=== PATIENT | male | born 1950 | race Caucasian/White ===

== ENCOUNTER 2018-07-26 16:08 | Observation (INO) | payer OTHER ==
[~2018-07-26] VITALS: Ht 167.6 cm; Wt 85.0 kg
[2018-07-26 16:10] VITALS: Ht 167.6 cm; Wt 85.0 kg
[2018-07-26] MEDS ORDERED: ONDANSETRON 4 MG INJ IV PRN ×2 (16:30→18:00)
[2018-07-26] MEDS ORDERED: ACETAMINOPHEN 325 MG TAB PO PRN ×2 (16:30→18:00)
--- NOTE | 2018-07-26 16:45 | ERD ---
ER Documentation Chief Complaint Chief Complaint Patient sent from clinic for evaluation Bradycardia HPI 68-year-old gentleman who presents to the emergency room from all of you. The patient is a transfer but will be boarding in the emergency room because we do not have beds. The patient was admitted at [facility] for chest pain for 3 days. He had a stress test and bradycardia and was admitted to our facility because of capitation. He currently denies any chest pain. No other complaints. ROS All systems reviewed and are negative except as per history of present illness. FmHx Family History: No diabetes Physical Exam Vitals Vital Signs Date Temp Pulse Resp B/P (MAP) Pulse Ox O2 O2 Flow FiO2 Time Delivery Rate 07/26/18 98.8 60 20 147/76 95 16:10 (99) Physical Exam General: Well developed, well nourished, no acute distress Head: Normocephalic, atraumatic. Eyes: EOM intact ENT: Moist mucous membranes Neck: Full ROM Respiratory: No respiratory distress Cardiovascular: Well perfused distally Abdominal: Nondistended : Deferred MSK: No edema, no unilateral swelling, 5/5 strength Neurologic: Alert and oriented, moving all extremities, normal speech, steady gait Skin: No rash Psych: Normal mood Results 24 hrs Current Medications Medications Dose Sig/Jimi Start Time Status Last (Trade) Ordered Route PRN Stop Time Admin Dose Reason Admin Ondansetron 4 mg ER BRIDGE 07/26/18 HCl (Zofran PRN IV 16:30 Inj) NAUSEA/VOMITI 07/27/18 16:29 NG 650 mg ER BRIDGE 07/26/18 Acetaminophen PRN PO 16:30 (Tylenol .MILD PAIN 07/27/18 16:29 Tab) 1-3 OR TEMP Procedures/MDM The patient will be boarding in the emergency room. Dr. Amaya was notified of the patient's arrival and will evaluate the patient. The patient is hemodynamically stable and asymptomatic in the emergency room setting. Accepting care team and consultations: I discussed the current laboratory data, diagnostic imaging and emergency care provided. Admitting team: Dr Amaya Admitting team indication: Insurance directed Departure Diagnosis: Primary Impression: Bradycardia Additional Impression: Chest pain Chest pain type: unspecified Qualified Codes: R07.9 - Chest pain, unspecified Condition: Stable CINDY ANAND MD Jul 26, 2018 16:45
[2018-07-26] MEDS ORDERED: ATOR40TA68 PO (17:04)
[2018-07-26] MEDS ORDERED: OMEP20CA16 PO (17:04)
--- NOTE | 2018-07-26 17:38 | QN ---
Documentation Comment seen and examined DOMINIC PRAKASH MD Jul 26, 2018 17:38
[2018-07-26] MEDS ORDERED: HYDROCODONE/APAP (5/325) TAB PO PRN (18:00)
[2018-07-26] MEDS: SOD CHLORIDE 0.9% 1,000 ML IV SCH (18:08)
--- NOTE | 2018-07-26 18:16 | HP ---
DATE OF ADMISSION: 07/26/2018 REASON FOR ADMISSION: Transferred to [facility] from [facility] secondary to anson cardia. HISTORY OF PRESENTING ILLNESS: A 68-year-old male with a history of prediabetes, hyperlipidemia, ZEN D, presented to [facility] on 07/26/2018 secondary to chest pain, discomfort. The patient s aid that he went to [place] along with his daughter 3 days ago and started noticing chest pain, di scomfort in the evening after eating pizza and coffee, felt like central burning sensation, nonradiat ing, worse with lying down and better with exertion. The patient said that he feels like similar to reflux pain he had in the past. The patient has tried Pepcid and omeprazole without any help. The p atient was also feeling intermittently dizzy for the last few days. Denied any hematemesis, any lucero na, any bright red blood per rectum. On arrival to [facility], vital signs showed heart rate of 48, blood pressure 138/87. EKG: No acute ST-T-wave changes from prior. The patient had chest x-ray ted t was negative. The patient was seen by cardiology, had a normal stress test; however given artifact on EKG at peak stress, I recommend for further evaluation ____. The patient was having mild chest p ain. The patient was seen and they said that given the fact that the patient had good exercise americo ance without exertional chest pain on exercise treadmill places low risk of cardiac events in next 5 years, adding imaging modality to improve sensitivity and specificity for detecting coronary artery d isease and the patient was transferred due to insurance reasons. Currently, the patient said the pat ient has pain of 1/10. PAST MEDICAL HISTORY: 1. Prediabetes. 2. Hypertension. 3. GERD. ALLERGIES: NONE. MEDICATIONS TAKING AT HOME: 1. Atorvastatin 40. 2. Prilosec 20. SOCIAL HISTORY: Occasionally drinks alcohol. Denies history of smoking or any recreational drug use . Lives in [place]. FAMILY HISTORY: Significant for coronary artery disease in the mother at 80s and sister in 50s. REVIEW OF SYSTEMS: The patient has some central burning pain. Denies any headache. Dizziness is ge tting better. Denies any episodes of passing out, any history of seizures, any abdominal pain, nause a, vomiting, diarrhea, headache, blurry vision, any focal neurological deficit. PHYSICAL EXAMINATION: VITAL SIGNS: Currently, pulse 54, temperature 98.3, respiratory rate 20, blood pressure 130/71. GENERAL: The patient is awake, alert, oriented, does not appear to be in acute distress. HEENT: Pupils are equal, round, reactive to light. NECK: Supple. No JVD. HEART: Regular rate and rhythm. LUNGS: Clear to auscultation bilaterally. ABDOMEN: Soft, nontender, nondistended. EXTREMITIES: No clubbing, cyanosis or edema. ASSESSMENT AND PLAN: This is a 68-year-old male with: 1. Chest pain for the last 3 days. The patient ____ had likely noncardiac in origin, could be secon nithya to poorly controlled gastroesophageal reflux disease versus reflux versus gastric ulcer disease. Troponins were negative. EKG was negative for any acute ST or T-wave changes. The patient also landry d a treadmill test which we recommend. The patient had good exercise tolerance without exertional ch est pain and if patient continued to have chest pain as an outpatient, I recommend an imaging modalit y to improve sensitivity and specificity. 2. Sinus bradycardia. TSH within normal limit. Echo is pending. 3. History of hypertension. 4. Hyperlipidemia. PLAN: At this period of time, the patient is admitted to tele. We will continue to monitor the bennett ent. We will get EKG, troponin. Protonix. Cardiology consult with Dr. Garcia. Rest of the treatm ent will depend on the patient's hospitalization course. Dictated By: DOMINIC PRAKASH RB/MEETA Conf#: [id number] DID#: [id number] CC: CINDY ANAND MD; TIP GARCIA MD;*EndCC*
[2018-07-26] MEDS: ATORVASTATIN 40 MG TAB PO SCH (20:54)
[2018-07-26 21:38] VITALS: PULSE 53
[2018-07-27] VITALS (12 sets, daily range): BP systolic 107–131; BP diastolic 64–79; PULSE 42–68; RESP 18
[2018-07-27] MEDS: PANTOPRAZOLE (EC) 40 MG TAB PO SCH (06:34)
[2018-07-27] MEDS: ENOXAPARIN 30 MG/0.3 ML SYG SC SCH (10:08)
--- NOTE | 2018-07-27 13:14 | PN ---
Date/Time of Note Date/Time of Note DATE: 07/27/18 TIME: 13:13 Assessment/Plan VTE Prophylaxis Risk score (from [facility])>0 risk: 4 SCD applied (from [facility]): No SCD contraindicated: other Pharmacological prophylaxis: LMWH Lines/Catheters IV Catheter Type (from [facility]): Saline Lock Assessment/Plan Hospital Course 1. Chest pain for the last 3 days. More likely heartburn. GERD . 2. Sinus bradycardia. TSH within normal limit. Echo is pending. 3. History of hypertension. 4. Hyperlipidemia. 5. Obesity 6. hx of prediabetes Assessment/Plan - tele. SB, 53 /min. Neg. troponn -EKG, troponin. Protonix. -Cardiology consult with Dr. Garcia. -DVT proph. loVENOX -GI prophylaxis Protonix -dr Garcia wants to observe overnight, f/up with echo -d/c tomorrow Result Diagram: 07/27/18 0506 07/27/18 0506 Results 24hrs Laboratory Tests Test 07/26/18 18:13 07/26/18 23:47 07/27/18 05:06 Creatine Kinase 99 92 Creatine Kinase Index 0.5 0.6 Creatinine Kinase MB (Mass) 0.49 0.54 Troponin I < 0.012 < 0.012 White Blood Count 8.1 Red Blood Count 4.97 Hemoglobin 14.8 Hematocrit 44.8 Mean Corpuscular Volume 90.1 Mean Corpuscular Hemoglobin 29.8 Mean Corpuscular Hemoglobin Concent 33.0 Red Cell Distribution Width 13.2 Platelet Count 235 Mean Platelet Volume 11.0 H Immature Granulocytes % 0.100 Neutrophils % 37.2 L Lymphocytes % 45.9 Monocytes % 13.0 H Eosinophils % 3.4 Basophils % 0.4 Nucleated Red Blood Cells % 0.0 Immature Granulocytes # 0.010 Neutrophils # 3.0 Lymphocytes # 3.7 H Monocytes # 1.1 H Eosinophils # 0.3 Basophils # 0.0 Nucleated Red Blood Cells # 0.0 Sodium Level 142 Potassium Level 4.5 Chloride Level 105 Carbon Dioxide Level 28 Anion Gap 9 Blood Urea Nitrogen 21 H Creatinine 0.90 Est Glomerular Filtrat Rate mL/min > 60 Glucose Level 108 Calcium Level 9.9 Free Thyroxine Index 2.52 Thyroxine (T4) 8.3 Triiodothyronine (T3) Uptake 30.4 Subjective 24 Hr Interval Summary Gastrointestinal: pain (midchest) Exam/Review of Systems Exam Vitals Vital Signs Date Temp Pulse Resp B/P (MAP) Pulse Ox O2 O2 Flow FiO2 Time Delivery Rate 07/27/18 68 12:05 07/27/18 98.1 18 107/64 98 Room Air 11:39 (78) Intake and Output 07/26/18 07/26/18 07/27/18 1515:00 23:00 07:00 IntakeIntake Total 400 ml BalanceBalance 400 ml Constitutional: alert, oriented Neck: supple Respiratory: clear to auscultation Cardiovascular: regular rate and rhythm Gastrointestinal: soft Genitourinary - Male: CVA tenderness; No nl penis, No nl scrotum, No discharge, No other Results Results 24hrs Laboratory Tests Test 07/26/18 18:13 07/26/18 23:47 07/27/18 05:06 Creatine Kinase 99 92 Creatine Kinase Index 0.5 0.6 Creatinine Kinase MB (Mass) 0.49 0.54 Troponin I < 0.012 < 0.012 White Blood Count 8.1 Red Blood Count 4.97 Hemoglobin 14.8 Hematocrit 44.8 Mean Corpuscular Volume 90.1 Mean Corpuscular Hemoglobin 29.8 Mean Corpuscular Hemoglobin Concent 33.0 Red Cell Distribution Width 13.2 Platelet Count 235 Mean Platelet Volume 11.0 H Immature Granulocytes % 0.100 Neutrophils % 37.2 L Lymphocytes % 45.9 Monocytes % 13.0 H Eosinophils % 3.4 Basophils % 0.4 Nucleated Red Blood Cells % 0.0 Immature Granulocytes # 0.010 Neutrophils # 3.0 Lymphocytes # 3.7 H Monocytes # 1.1 H Eosinophils # 0.3 Basophils # 0.0 Nucleated Red Blood Cells # 0.0 Sodium Level 142 Potassium Level 4.5 Chloride Level 105 Carbon Dioxide Level 28 Anion Gap 9 Blood Urea Nitrogen 21 H Creatinine 0.90 Est Glomerular Filtrat Rate mL/min > 60 Glucose Level 108 Calcium Level 9.9 Free Thyroxine Index 2.52 Thyroxine (T4) 8.3 Triiodothyronine (T3) Uptake 30.4 Medications Medication Current Medications Sodium Chloride 1,000 ml @ 40 mls/hr Q24H IV Last administered on 07/26/18at 18:08; Admin Dose 40 MLS/HR; Start 07/26/18 at 17:31 Ondansetron HCl (Zofran Inj) 4 mg Q6H PRN IV NAUSEA/VOMITING; Start 07/26/18 at 18:00 Acetaminophen (Tylenol Tab) 650 mg Q6H PRN PO .PAIN 1-3 OR TEMP; Start 07/26/18 at 18:00 Acetaminophen/ Hydrocodone Bitart ([place] (5/325)) 1 tab Q6H PRN PO .MOD PAIN 4- 6; Start 07/26/18 at 18:00 Pantoprazole (Protonix Tab) 40 mg DAILY@06 PO Last administered on 07/27/18at 06:34; Admin Dose 40 MG; Start 07/27/18 at 06:00 Enoxaparin Sodium (Lovenox) 30 mg DAILY SC Last administered on 07/27/18at 10:08; Admin Dose 30 MG; Start 07/27/18 at 09:00 Atorvastatin Calcium (Lipitor) 40 mg QHS PO Last administered on 07/26/18at 20:54; Admin Dose 40 MG; Start 07/26/18 at 21:00 JONATHAN CROOK Jul 27, 2018 13:14
--- NOTE | 2018-07-27 15:21 | CONS ---
DATE OF ADMISSION: 07/26/2018 DATE OF CONSULTATION: 07/27/2018 TYPE OF CONSULTATION: Cardiology. REASON FOR CONSULTATION: Bradycardia, chest pain. REQUESTING PHYSICIAN: Sakshi Prakash MD, from nephrology service. HISTORY OF PRESENT ILLNESS: Mr. Fer Millan is a 68-year-old male with history of hypertension, d yslipidemia, gastroesophageal reflux disease, prediabetic, who initially presented to [facility] with complaints of substernal chest pain describes as burning sensation, worse with lying flat , but no significant improvement with PPIs or H2 blockers. The patient subsequently was admitted to outside hospital and ruled out for myocardial infarction, underwent a treadmill stress test and inter preted as a normal stress test with an artifact in EKG at peak stress and Cooper Treadmill Score of ___ __. The patient was additionally noted to be bradycardic but had no indication for permanent pacemak er at that time. The patient has now been transferred to [facility] for ongoing tr eatment and evaluation. Since arrival, temperature was 98.8, blood pressures have been rate controll ed from 107 up to 131 over 60s, heart rates have primarily been in the 50s and at night, did drop rowan n into the high 30s. The patient denies any history of dizziness or actual syncope. The patient als o denies ongoing chest pain at this time. PAST MEDICAL HISTORY: As above in HPI. MEDICATIONS CURRENTLY IN HOSPITAL: 1. Lovenox 30 mg subcutaneous daily. 2. Protonix 40 mg daily. 3. Lipitor 40 mg at bedtime. 4. Zofran p.r.n. 5. Tylenol p.r.n. 6. [place] p.r.n. 7. IV fluid hydration of 40 mL an hour. ALLERGIES: NO KNOWN DRUG ALLERGIES. SOCIAL HISTORY: No current tobacco, EtOH or illicit drug use. FAMILY HISTORY: No history of sudden cardiac or early CAD. REVIEW OF SYSTEMS: As above in HPI. CONSTITUTIONAL: No fevers, chills. PULMONARY: No current shortness of breath. CARDIOVASCULAR: No current chest pain but chest pain at outside hospital. GASTROINTESTINAL: No vomiting. GENITOURINARY: No hematuria. MUSCULOSKELETAL: Degenerative joint disease. PSYCHIATRIC: The patient denies depression. NEUROLOGIC: No documented history of CVA. PHYSICAL EXAMINATION: VITAL SIGNS: Temperature of 98.1, blood pressure 107/64, pulse 59, respiratory rate 18, satting 98%. GENERAL: The patient is alert, awake, in no acute distress. NECK: JVP is approximately 8 to 9 cm of water. CHEST: Fair air movement throughout. HEART: Regular rate and rhythm. Normal S1, S2, I/ systolic murmur, nondisplaced PMI. ABDOMEN: Positive bowel sounds, soft. EXTREMITIES: No significant pitting edema, 1+ pulses bilateral posterior tibial. LABORATORY DATA: Most recently from today, white blood cell count 8.1, hemoglobin 14.8, platelet cou nt 235. Sodium 142, potassium 4.5, creatinine 0.9, BUN 21. Troponin negative. IMAGING STUDIES: No imaging studies for my review at this time. ELECTROCARDIOGRAM: From today reveals normal sinus bradycardia, rate of 50, normal axis, normal inte rvals, isolated T-wave flattening in lateral leads. IMPRESSION: 1. Bradycardia with heart rates at times going down to 30s mainly in the 50s during the daytime, sta ble blood pressure. The patient denies history of syncope or significant dizziness though he does landry ve at times generalized weakness. 2. Chest pain, currently resolved with the patient describing it as a burning sensation and underwen t a treadmill stress test at outside hospital with high [place] Treadmill Stress Score should make him v edgardo low risk for cardiovascular events and resolved pain currently. 3. Hypertension, reasonable control. 4. Dyslipidemia. 5. Gastroesophageal reflux disease. 6. Prediabetic. RECOMMENDATIONS: 1. At this time, we would maintain the patient on telemetry monitoring to follow rhythm and rates cl osely. 2. Complete the patient's rule out for myocardial infarction, thus send final troponin. 3. I do not see that the patient had a 2D echo and therefore, we will order 2D echo to be done. 4. We will continue to follow the patient's rhythm closely and to follow for any symptoms to see if there is any indication for permanent pacemaker as I do not see at this time. 5. Additionally, we will check a fasting lipid panel for general risk stratification. Thank you for allowing me to take part in the care of this patient. I will continue to follow him ve ry closely with you with further recommendations to be made as the [facility] Dictated By: TIP JUNIOR/MEETA Conf#: [id number] DID#: [id number] CC: SAKSHI PRAKASH; ELVIE GRIMALDO MD;*[facility]*
--- NOTE | 2018-07-27 16:48 | RADRPT ---
Echocardiogram Report Patient Name: VIPUL SUGGSPatient ID: [id number] : 1950 (68y 6m)Study Date: 07/27/2018 7:34:29 AM Gender: MAccession #: [id number] Tech: YoungChidi Billingsley [facility] Location: [id number] Ref.Physician: DOMINIC PRAKASH Height(Cm): BSA: Weight(Kg): Quality: AdequateAccount #: Procedures: Echocardiographic Report: Transthoracic echocardiogram with complete 2D, M-Mode, and doppler examination. Indications: Chest Pain. Measurements: 2D/M Mode Doppler Measurement Value Normal Range Measurement Value Normal Range LVIDd 2D 5.3 [ 4.2 - 5.8 ] cm AV Peak Yonathan 1.2 [ 100.0 - 170.0 ] cm/sec LVIDs 2D 2.8 [ 2.5 - 4.0 ] cm AV Peak PG 6.0 [ 2.0 - 9.0 ] mmHg LVPWd 2D 1.2 [ 0.6 - 1.0 ] cm LVOT Peak Yonathan 1.0 [ 70.0 - 110.0 ] cm/sec IVSd 2D 1.2 [ 0.6 - 1.0 ] cm LVOT Peak PG 4.0 [ 2.0 - 6.0 ] mmHg AoR Diam 2D 3.5 [ 2.6 - 3.4 ] cm MV E Peak Yonathan 0.6 [ 60.0 - 130.0 ] cm/sec EDV 2D 138.0 [ 62.0 - 150.0 ] ml MV A Peak Yonathan 0.8 [ 100.0 - 120.0 ] cm/sec ESV 2D 28.3 [ 21.0 - 61.0 ] ml MV E/A 0.8 [ 0.8 - 1.5 ] ratio EF 2D 79.5 [ 52.0 - 72.0 ] percent MV Decel Time 275 [ 104 - 258 ] msec LA Dimen 2D 3.6 [ 3.0 - 4.0 ] cm Lat E` Yonathan 0.1 [ 10.0 - 15.0 ] cm/sec Lateral E/E` 6.4 [ 1.0 - 2.0 ] ratio MV E/A 0.8 [ 0.8 - 1.5 ] ratio Findings: Left Ventricle: Normal left ventricular systolic function. Normal left ventricular cavity size. Mild concentric left ventricular hypertrophy. Ejection fraction is visually estimated at 55-60 %. Tissue Doppler/Mitral Doppler indices are consistent with impaired relaxation (Stage I diastolic dysfunction). Right Ventricle: Normal right ventricular size. Normal right ventricular systolic function. Left Atrium: The left atrium is normal in size. Right Atrium: The right atrium is normal in size. Mitral Valve: Normal appearance and function of the mitral valve with trace physiologic regurgitation. Aortic Valve: Normal appearance of the aortic valve. No significant aortic stenosis or insufficiency. Tricuspid Valve: Normal appearance of the tricuspid valve. Unable to obtain RVSP due to minimal presence of tricuspid regurgitation. Pulmonic Valve: Normal pulmonic valve appearance. Pericardium: Normal pericardium with no significant pericardial effusion. Aorta: Normal aortic root. IVC: Normal size and normal respiratory collapse consistent with normal right atrial pressure. Conclusions: Normal left ventricular systolic function. Normal left ventricular cavity size. Mild concentric left ventricular hypertrophy. Ejection fraction is visually estimated at 55-60 %. Tissue Doppler/Mitral Doppler indices are consistent with impaired relaxation (Stage I diastolic dysfunction). Normal appearance and function of the mitral valve with trace physiologic regurgitation. Normal appearance of the tricuspid valve. Unable to obtain RVSP due to minimal presence of tricuspid regurgitation. Electronically Signed By: Keaton Garcia 2018-07-27 16:47:18 PDT
[2018-07-27] MEDS: SOD CHLORIDE 0.9% 1,000 ML IV SCH (17:31)
[2018-07-27] MEDS: ATORVASTATIN 40 MG TAB PO SCH (20:43)
[2018-07-28] VITALS (8 sets, daily range): BP systolic 107–123; BP diastolic 60–78; PULSE 41–62; RESP 18
[2018-07-28] MEDS: PANTOPRAZOLE (EC) 40 MG TAB PO SCH (06:01)
[2018-07-28] MEDS: SOD CHLORIDE 0.9% 1,000 ML IV SCH (08:28)
[2018-07-28] MEDS: ENOXAPARIN 30 MG/0.3 ML SYG SC SCH (08:35)
--- NOTE | 2018-07-28 09:57 | CONS ---
Consult Date/Type/Reason Admit Date/Time Jul 26, 2018 at 16:27 Initial Consult Date Date/Time of Note DATE: 07/28/18 TIME: 09:55 Subjective NO acute events - pt doing well - HR mid 50s now - tele reviewed - no new anson to 30s now - Vs stable. NO pauses. ROS: No fever, no chills, no nausea, no vomiting, no diarrhea/constipation No recent weight changes No chest pain, no PND, no orthopnea No dizziness, blurred vision No thirst, no heat or cold intolerance Objective Vitals Vital Signs Date Temp Pulse Resp B/P (MAP) Pulse Ox O2 O2 Flow FiO2 Time Delivery Rate 07/28/18 42 08:13 07/28/18 98.0 18 123/71 95 Room Air 07:29 (88) Intake and Output 07/27/18 07/27/18 07/28/18 1515:00 23:00 07:00 IntakeIntake Total 700 ml BalanceBalance 700 ml Exam General: WN/WD/NAD, AOx 3 HEENT: Unicetric/atraumatic/EOMI (follows commands) NECK: JVD elevated, no thyromegaly Lymph: no lymphadenopathy HEART: regular with no S3, II/ systolic murmur at apex LUNGS: Coarse sounds ABD: soft, NT, ND, +BS : Intact Neuro: non focal SKIN: chronic changes EXT: trace edema Results/Medications Result Diagram: 07/28/1851907/28/18 0520 Results 24 hrs Laboratory Tests Test 07/28/18 05:20 White Blood Count 6.6 Red Blood Count 4.61 L Hemoglobin 13.7 L Hematocrit 41.2 L Mean Corpuscular Volume 89.4 Mean Corpuscular Hemoglobin 29.7 Mean Corpuscular Hemoglobin Concent 33.3 Red Cell Distribution Width 13.1 Platelet Count 219 Mean Platelet Volume 11.3 H Immature Granulocytes % 0.300 Neutrophils % 36.1 L Lymphocytes % 45.2 Monocytes % 11.5 H Eosinophils % 6.3 Basophils % 0.6 Nucleated Red Blood Cells % 0.0 Immature Granulocytes # 0.020 Neutrophils # 2.4 Lymphocytes # 3.0 H Monocytes # 0.8 Eosinophils # 0.4 Basophils # 0.0 Nucleated Red Blood Cells # 0.0 Sodium Level 142 Potassium Level 4.1 Chloride Level 106 Carbon Dioxide Level 25 Anion Gap 11 Blood Urea Nitrogen 20 Creatinine 0.88 Est Glomerular Filtrat Rate mL/min > 60 Glucose Level 103 Hemoglobin A1c 6.0 H Calcium Level 9.5 Triglycerides Level 170 H Cholesterol Level 161 LDL Cholesterol, Calculated 90 HDL Cholesterol 37 Cholesterol/HDL Ratio 4.3 Home Meds Reported Medications Atorvastatin* (Atorvastatin*) 40 Mg Tablet, 40 MG PO QHS, #30 TAB 07/26/18 Omeprazole* (Omeprazole*) 20 Mg Capsule.dr, 20 MG PO DAILY, #30 CAP 07/26/18 Medications Current Medications Sodium Chloride 1,000 ml @ 40 mls/hr Q24H IV Last administered on 07/28/18at 08:28; Admin Dose 40 MLS/HR; Start 07/26/18 at 17:31 Ondansetron HCl (Zofran Inj) 4 mg Q6H PRN IV NAUSEA/VOMITING; Start 07/26/18 at 18:00 Acetaminophen (Tylenol Tab) 650 mg Q6H PRN PO .PAIN 1-3 OR TEMP; Start 07/26/18 at 18:00 Acetaminophen/ Hydrocodone Bitart ([place] (5/325)) 1 tab Q6H PRN PO .MOD PAIN 4- 6; Start 07/26/18 at 18:00 Pantoprazole (Protonix Tab) 40 mg DAILY@06 PO Last administered on 07/28/18at 06:01; Admin Dose 40 MG; Start 07/27/18 at 06:00 Enoxaparin Sodium (Lovenox) 30 mg DAILY SC Last administered on 07/28/18at 08:35; Admin Dose 30 MG; Start 07/27/18 at 09:00 Atorvastatin Calcium (Lipitor) 40 mg QHS PO Last administered on 07/27/18at 20:43; Admin Dose 40 MG; Start 07/26/18 at 21:00 Assessment/Plan Hospital Course (Demo Recall) 1. Bradycardia with heart rates at times going down to 30s mainly in the 50s during the daytime, stable blood pressure. The patient denies history of syncope or significant dizziness though he does have at times generalized weakness- tele reviewd - HR better - no pauses, no Class I indication for pacer - outpt f/up advised. 2. Chest pain, currently resolved with the patient describing it as a burning sensation and underwent a treadmill stress test at outside hospital with high [place] Treadmill Stress Score should make him very low risk for cardiovascular events and resolved pain currently. R/O Mi. 3. Hypertension, reasonable control. Controlled. 4. Dyslipidemia. 5. Gastroesophageal reflux disease. 6. Prediabetic- weight loss advised. AIDA FIELD MD Jul 28, 2018 09:57
--- NOTE | 2018-07-28 12:43 | PDOCDIS ---
Discharge Instructions DIAGNOSIS Discharge Diagnosis bradycardia, prediabetes CONDITION [id number] Patient Condition: [id number] Stable HOME CARE INSTRUCTIONS: Cb Your diet recommendation is: [id number] carcb control ACTIVITY: [id number] Activity Restrictions: [id number] Slowly Increase Activity Rest between Activity Avoid heavy lifting FOLLOW UP/APPOINTMENTS Follow-up Plan PCP 1 week JONATHAN CROOK Jul 28, 2018 12:43
--- NOTE | 2018-07-28 12:44 | DS ---
Date/Time of Note Date/Time of Note DATE: 07/28/18 TIME: 12:43 Discharge Summary Admission/Discharge Info Admit Date/Time Jul 26, 2018 at 16:27 Discharge Date/Time Discharge Diagnosis bradycardia, prediabetes Hospital Course 1. Chest pain for the last 3 days. More likely heartburn. GERD . 2. Sinus bradycardia. TSH within normal limit. Echo is normal 60-65 % 3. History of hypertension. 4. Hyperlipidemia. 5. Obesity 6. Prediabetes, Hg A1 C 6.0 During hospitalization pt was on telemetry monitoring. There were SB, 53 /min, no other events were registered. Neg. troponin was registered. We had EKG done. dr Garcia, cardiology, interpret it. Pt was on GI prophylaxis and report that Protonix decreased burning pain. DVT proph. was achieved by loVENOX. dr Garcia wants to observe pt overnight, f/up with echo. Echocardiogram is normal, there is some diastolic dysfunction found. Dr Etienne , cardiology cleared pt to be d/c. Home Meds Reported Medications Atorvastatin* (Atorvastatin*) 40 Mg Tablet, 40 MG PO QHS, #30 TAB 07/26/18 Omeprazole* (Omeprazole*) 20 Mg Capsule., 20 MG PO DAILY, #30 CAP 07/26/18 Follow-up Plan PCP 1 week Primary Care Provider Not On Staff Doctor Time spent on discharge: < 30 minutes Pending Labs Laboratory Tests Test 07/28/18 05:20 White Blood Count 6.6 10^3/ul (4.8-10.8) Red Blood Count 4.61 10^6/ul (4.70-6.10) Hemoglobin 13.7 g/dl (14.0-18.0) Hematocrit 41.2 % (42.0-52.0) Mean Corpuscular Volume 89.4 fl (82.0-101.0) Mean Corpuscular Hemoglobin 29.7 pg (29.0-33.0) Mean Corpuscular Hemoglobin Concent 33.3 g/dl (32.0-37.0) Red Cell Distribution Width 13.1 % (11.5-14.5) Platelet Count 219 10^3/UL (140-415) Mean Platelet Volume 11.3 fl (7.4-10.4) Immature Granulocytes % 0.300 % (0.001-0.429) Neutrophils % 36.1 % (39.0-77.0) Lymphocytes % 45.2 % (15.0-51.0) Monocytes % 11.5 % (0.0-11.0) Eosinophils % 6.3 % (0.0-7.0) Basophils % 0.6 % (0.0-2.0) Nucleated Red Blood Cells % 0.0 /100WBC (0.0-0.0) Immature Granulocytes # 0.020 10^3/ul (0.0-0.031) Neutrophils # 2.4 10^3/ul (1.6-7.5) Lymphocytes # 3.0 10^3/ul (0.8-2.9) Monocytes # 0.8 10^3/ul (0.3-0.9) Eosinophils # 0.4 10^3/ul (0.0-0.5) Basophils # 0.0 10^3/ul (0.0-0.1) Nucleated Red Blood Cells # 0.0 10^3/ul (0.0-0.0) Sodium Level 142 mmol/L (135-144) Potassium Level 4.1 mmol/L (3.5-5.1) Chloride Level 106 mmol/L (97-110) Carbon Dioxide Level 25 mmol/L (21-31) Anion Gap 11 (5-13) Blood Urea Nitrogen 20 mg/dl (7-20) Creatinine 0.88 mg/dl (0.61-1.24) Est Glomerular Filtrat Rate mL/min > 60 mL/min (>60) Glucose Level 103 mg/dl (70-220) Hemoglobin A1c 6.0 % (0-5.9) Calcium Level 9.5 mg/dl (8.4-10.2) Triglycerides Level 170 mg/dl (0-149) Cholesterol Level 161 mg/dl (100-200) LDL Cholesterol, Calculated 90 mg/dl HDL Cholesterol 37 mg/dl (30-78) Cholesterol/HDL Ratio 4.3 RATIO JONATHAN CROOK Jul 28, 2018 12:44
--- NOTE | 2018-07-30 01:07 | RADRPT ---
Vent Rate: 52 bpm RR Interval: 1144 msec SC Interval: 171 msec QRS Duration: 95 msec QT Interval: 414 msec QTC Interval: 387 msec P-R-T [place]: 50 - -2 - 74 degrees Sinus rhythm...normal P axis, V-rate 50- 99 Electronically Signed By: Gustavo Valle
== END 2018-07-28 14:38 | disposition home or self-care (01) ==
LOC: E/R 16:08 → 6WM 16:27
PROVIDERS: ADMIT Internal Medicine Nephrology; ATTEND Internal Medicine Nephrology
DX: R00.1 Bradycardia, unspecified (principal); R73.03 Prediabetes; R07.9 Chest pain, unspecified; I10 Essential (primary) hypertension; E78.5 Hyperlipidemia, unspecified; E66.9 Obesity, unspecified; Z68.30 Body mass index [BMI] 30.0-30.9, adult
CPT/HCPCS: 71045; 80048; 80061; 82550; 82553; 83036; 84436; 84443; 84479; 84484; 85025; 93005; 93306; J1650; J7030; Z7500; Z7502; Z7610; G0378